=== PATIENT | female | born 1970 | race Caucasian/White ===

== ENCOUNTER 2016-11-19 14:32 | Emergency (ER) | payer OTHER ==
--- NOTE | 2016-11-19 15:06 | ED Physician Chart ---
Chief Complaint/HPI - Patient Information Date Seen:: 11/19/16 Time Seen:: 14:50 Chief Complaint:: abdominal bloating History of Present Illness:: Patient's had abdominal bloating for the last 2 days. No vomiting or diarrhea. Patient was seen here 3 days ago for left upper quadrant abdominal pain. A CAT scan of the abdomen and pelvis was done which was essentially negative. Patient started vaginal bleeding 2 nights ago. Her last normal menstrual period was 2 weeks ago. Allergies:: Allergies Allergy/AdvReac Type Severity Reaction Status Date / Time No Known Allergies Allergy Verified 11/19/16 14:43 Vitals:: Vital Signs - 8 hr 11/19/16 14:32 Temp 97.7 F HR 85 RR 16 BP 120/66 O2 Sat % 100 Historian:: Patient Review of Systems - Review of Systems General/Constitutional: No fever, No chills Skin: No skin lesions Head: No headache Eyes: No loss of vision ENT: No earache Neck: No neck pain Cardio Vascular: No chest pain, No palpitations Pulmonary: No SOB GI: Pain, Other (abdominal bloating) G/U: No dysuria, No frequency Musculoskeletal: No bone or joint pain, No back pain, No muscle pain Endocrine: No polyuria, No polydipsia Psychiatric: No prior psych history Hematopoietic: No bruising Allergic/Immuno: No urticaria, No angioedema Neurological: No syncope Family Medical History - Family Member Mother History Unknown: Yes Labs/Radiology/EKG Results - Lab Results Results: Laboratory Results - last 24 hr 11/19/16 11/19/16 11/19/16 15:00 15:00 15:08 WBC 6.4 RBC 3.86 Hgb 13.4 Hct 39.4 MCV 102.1 H MCH 34.8 H MCHC Differential 34.0 RDW 12.8 Plt Count 267 MPV 7.8 Neutrophils % 65.9 Lymphocytes % 23.0 Monocytes % 7.9 Eosinophils % 3.0 Basophils % 0.2 Sodium Potassium Chloride Carbon Dioxide Anion Gap BUN Creatinine Est GFR ( Amer) Est GFR (Non-Af Amer) BUN/Creatinine Ratio Glucose Calcium Magnesium Lipase Urine Source MIDSTREAM Urine Color YELLOW Urine Clarity SLIGHT CLOUDY Urine pH 6.0 Ur Specific [place] >= 1.030 Urine Protein NEGATIVE Urine Glucose (UA) NEGATIVE Urine Ketones NEGATIVE Urine Blood LARGE H Urine Nitrate NEGATIVE Urine Bilirubin SMALL H Urine Urobilinogen 0.2 Ur Leukocyte Esterase NEGATIVE Urine RBC 25-50 H Urine WBC 0-2 Ur Epithelial Cells MODERATE Urine Bacteria FEW Urine Test NEGATIVE 11/19/16 15:08 WBC RBC Hgb Hct MCV MCH MCHC Differential RDW Plt Count MPV Neutrophils % Lymphocytes % Monocytes % Eosinophils % Basophils % Sodium 135 L Potassium 2.9 L* Chloride 103 Carbon Dioxide 28.1 Anion Gap 6.8 L BUN 14 Creatinine 0.9 Est GFR ( Amer) > 60.0 Est GFR (Non-Af Amer) > 60.0 BUN/Creatinine Ratio 15.6 Glucose 103 Calcium 10.1 Magnesium 1.9 Lipase 21 Urine Source Urine Color Urine Clarity Urine pH Ur Specific [place] Urine Protein Urine Glucose (UA) Urine Ketones Urine Blood Urine Nitrate Urine Bilirubin Urine Urobilinogen Ur Leukocyte Esterase Urine RBC Urine WBC Ur Epithelial Cells Urine Bacteria Urine Test - Radiology Results Results: abdominal ultrasound negative; pelvic ultrasound: bilateral ovarian cysts ED Septic Shock - . Is Septic Shock (SBP<90, OR Lactate>4 mmol\L) present?: No - <6hrs of presentation: Vital Signs: Vital Signs - 8 hr 11/19/16 14:32 Temp 97.7 F HR 85 RR 16 BP 120/66 O2 Sat % 100 Reassessment (Disposition) - Reassessment Reassessment Condition:: Unchanged - Diagnosis Diagnosis:: gastritis - Aftercare/Follow up Instructions Aftercare/Follow-Up Instructions:: Counseled pt regarding lab results/diagnosis & need follow up - Patient Disposition Discharge/Transfer:: Home Condition at Disposition:: Stable, Unchanged
[2016-11-19 15:15] LABS: % BASOPHILS 0.2 % (0.0-2.0); % MONOCYTES 7.9 % (2.0-10.0); % NEUTROPHILS 65.9 % (40.0-80.0); HEMATOCRIT 39.4 % (35.0-45.0); HEMOGLOBIN 13.4 gm/dL (11.7-15.5); MEAN CELL VOLUME 102.1 fl (81-100); MEAN CORPUSCULAR HEMOGLOBIN 34.8 pg (27.0-31.0); MEAN PLATELET VOLUME 7.8 fl; NEUTROPHILE ABSOLUTE 4.2 Th/cmm (1.8-8.0); PLATELET COUNT 267 Th/cmm (150-400); RED BLOOD COUNT 3.86 Mil/cmm (3.80-5.10); RED CELL DISTRIBUTION WIDTH 12.8 % (11.5-20.0); WHITE BLOOD COUNT 6.4 Th/cmm (4.8-10.8)
[2016-11-19 15:24] LABS: URINE BILIRUBIN SMALL (NEGATIVE); URINE BLOOD LARGE (NEGATIVE); URINE GLUCOSE (UA) NEGATIVE (NEGATIVE); URINE KETONE NEGATIVE (NEGATIVE); URINE PROTEIN NEGATIVE (NEGATIVE); URINE UROBILINOGEN 0.2 E.U./dL (0.2 - 1.0)
[2016-11-19 15:30] LABS: URINE COLOR YELLOW
[2016-11-19 15:31] LABS: ANION GAP 6.8 (7.0-16.0); BUN - UREA NITROGEN 14 mg/dL (7-25); BUN/CREATININE RATIO 15.6; CALCIUM SERUM 10.1 mg/dL (8.6-10.3); CARBON DIOXIDE 28.1 mEq/L (21.0-31.0); CHLORIDE 103 mEq/L (98-107); CREATININE - SERUM 0.9 mg/dL (0.6-1.2); GLUCOSE 103 mg/dL (70-105); LIPASE 21 U/L (11-82); MAGNESIUM 1.9 mg/dL (1.9-2.7); SODIUM SERUM 135 mEq/L (136-145)
[2016-11-19 15:31] LABS: URINE BACTERIA FEW /hpf (NONE SEEN); URINE EPITHELIAL CELLS MODERATE /lpf (FEW); URINE RBC 25-50 /hpf (0-5); URINE WBC 0-2 /hpf (0-5)
[2016-11-19 15:40] LABS: POTASSIUM SERUM 2.9 mEq/L (3.5-5.1)
[2016-11-19] MEDS ORDERED: Potassium Chloride 20 mEq ER Tab PO ONE ×2 (16:25→16:28)
--- NOTE | 2016-11-20 08:48 | Diagnostic Imaging Report ---
Exam: Ultrasound examination of the abdomen. HISTORY: Abdominal pain. Findings: Real-time ultrasound examination of the abdomen was performed in multiple planes. The study demonstrates a normal appearance of the liver parenchyma. The gallbladder free of calculi. The common bile duct measures 3 mm. Pancreas is normal. The kidneys demonstrate no evidence of obstructive uropathy or nephrolithiasis. Right kidney measures 10.4 x 5.3 x 5.5 cm. Left kidney measures 9.5 x 5 x 6.1 cm. The spleen is intact. No free fluid is noted. IMPRESSION: Normal examination of the abdomen.
--- NOTE | 2016-11-20 10:57 | Diagnostic Imaging Report ---
Ultrasound pelvis HISTORY: Menorrhagia. LMP 11/08/2016. Beta hCG is not available COMPARISON: None Technique: Longitudinal and transverse sonographic sector images of the pelvis were obtained transabdominally and transvaginally. FINDINGS: The uterus measures 11.0 x 4.6 x 5.1 cm. The endometrial echo complex measures 7 mm. The right ovary measures 3.9 x 2 cm demonstrating follicular cystic changes. The left ovary measures 3.9 x 1.9 cm demonstrating follicular cystic changes. There is a heterogeneous area within the lower uterine segment measuring 1.3 x 1 cm possibly representing a fibroid. No evidence of free fluid in the pelvis. IMPRESSION: Endometrial complex measures 7 mm. Please correlate with patient's menstrual cycle. Hypoechoic area measuring 1.3 x 1 cm within the lower uterine segment possibly representing a small uterine fibroid. Clinical correlation and follow-up recommended. Bilateral follicular cystic changes.
== END 2016-11-19 19:15 | disposition home or self-care (01) ==
LOC: ER 14:32
DX: K29.70 Gastritis, unspecified, without bleeding (principal)
CPT/HCPCS: 36415-UA; 76700-TC; 76856-TC; 80048-TC; 81001-TC; 81025-TC; 83690-TC; 83735-TC; 85025-TC